=== PATIENT | male | born 1940 | race Caucasian/White ===

== ENCOUNTER 2019-12-09 14:12 | Outpatient (CLI) | payer MEDICARE, BC ==
--- NOTE | 2019-12-09 16:48 | MRI ---
EXAM: LUMBAR SPINE MRI WITHOUT IV CONTRAST: 12/09/19 HISTORY: Spinal stenosis of the lumbar region. Bilateral hip pain, low back pain. There are some multilevel areas of type I end plate changes including L2-3, L3-4 and L4-5 as well as extensive mixed end plate changes. Significant generalized disc degenerative disease and ligament and facet hypertrophic changes. Very small disc osteophyte at T11-12 with mild indention of the ventral thecal sac. T12-L1: Unremarkable. L1-L2 disc: Unremarkable. L2-L3 disc: Disc osteophytosis with moderate central canal and moderate to severe bilateral recess st enosis and bilateral foraminal stenosis. L3-L4 disc: Severe central canal and lateral recess and bilateral foraminal stenosis. L4-L5 disc: Very mild grade I anterolisthesis. Very severe central canal and lateral recess stenosis and severe bilateral foraminal stenosis. L5-S1 disc: Diffuse disc osteophytosis with some left lateral recess and moderate to severe left fora angie stenosis. IMPRESSION: 1. Multilevel variable severity canal, lateral recess, and foraminal stenosis as above. 2. Multilevel type I end plate changes. POS: [facility]
== END 2019-12-09 14:13 | disposition home or self-care (01) ==
LOC: TBSIIMAG 14:12
PROVIDERS: ATTEND Orthopaedic Surgery
DX: M48.061 Spinal stenosis, lumbar region without neurogenic claudication (principal)
CPT/HCPCS: 72148